=== PATIENT | female | born 1990 | race African-American/Black ===

== ENCOUNTER 2018-12-22 17:18 | Emergency (ER) | payer MEDICAID ==
[~2018-12-22] VITALS: Ht 157.5 cm; Wt 135.9 kg
[2018-12-22 17:20] VITALS: BP 111/57; PULSE 99; RESP 18; Ht 157.5 cm; Wt 135.9 kg
--- NOTE | 2018-12-22 18:18 | ERD ---
ER Documentation Chief Complaint Chief Complaint r100 fr home, "feels weird s/p smoking weed" pt keeps giggling HPI Patient is a 28-year-old female, no past medical history, presents to the ER for concerns of "feeling weird" after smoking weed. Patient is brought in from home by rescue ambulance. Patient states initially she thought she was having a panic attack that she called 911. She states she realized after that her symptoms are likely due to smoking weed. Patient admits to smoking "one joint". Patient denies any chest pain, shortness breath, nausea, vomiting, fevers, chills, diarrhea. Patient is currently eating 2 bags of chips. Patient's cousin Rosy is present and will take the patient home. ROS All systems reviewed and are negative except as per history of present illness. Allergies Allergies: Coded Allergies: latex (Verified Allergy, Unknown, 12/22/18) PMhx/Soc Medical and Surgical Hx: pt denies Medical Hx, pt denies Surgical Hx Hx Substance Use: Yes FmHx Family History: No diabetes Physical Exam Vitals Vital Signs Date Temp Pulse Resp B/P (MAP) Pulse Ox O2 O2 Flow FiO2 Time Delivery Rate 12/22/18 97.7 99 18 111/57 99 17:20 (75) Physical Exam GENERAL: Well-developed, well-nourished female. Appears in no acute distress. Speaking full sentences. Eating chips and drinking soda. HEAD: Normocephalic, atraumatic. EYES: Pupils are equally reactive bilaterally. EOMs grossly intact. No conjunctival erythema. ENT: Moist mucous membranes. No uvula deviation. No kissing tonsils. NECK: Supple. No meningismus. Normal range of motion of the neck. LUNG: Clear to auscultation bilaterally. No rhonchi, wheezing, rales or coarse breath sounds. HEART: Regular rate and rhythm. No murmurs, rubs or gallops EXTREMITIES: Equal pulses bilaterally. No peripheral clubbing, cyanosis or edema. No unilateral leg swelling. NEUROLOGIC: Alert and oriented. Moving all four extremities without any difficulty. Normal speech. Steady gait. SKIN: Normal color. Warm and dry. No rashes or lesions. Procedures/MDM MEDICAL DECISION MAKING: Patient is a 28-year-old female with the ER for concerns of "feeling weird" after smoking a joint prior to arrival.. Vital signs were reviewed. Patient is afebrile. Patient was not hypoxic. Patient was hemodynamically stable. Patient is alert and oriented. Patient is drinking soda and tolerating fluids without any difficulty. Patient did not vomit. Patient does have her cousin Rosy here with her who will help patient get home sleep. Patient advised on drug use cessation. Discussed case with supervising physician, Dr. Dumas, who agrees that patient is stable for outpatient management. DISCHARGE: At this time, patient is stable for discharge and outpatient management. I have instructed the patient to follow-up with his/her primary care physician in 1-2 days. I have discussed with the patient the possibility of needing to see a specialist for further workup and imaging studies if symptoms persist. I have instructed the patient to promptly return to the ER for any new or worsening symptoms including increased pain, fever, nausea, vomiting, weakness or LOC. The patient and/or family expressed understanding of and agreement with this plan. All questions were answered. Home care instructions were provided. Disclaimer: Inadvertent spelling and grammatical errors are likely due to EHR/dictation software use and do not reflect on the overall quality of patient care. Also, please note that the electronic time recorded on this note does not necessarily reflect the actual time of the patient encounter. Departure Diagnosis: Primary Impression: Marijuana abuse Condition: Fair Patient Instructions: Marijuana Abuse Referrals: [facility] YOU HAVE RECEIVED A MEDICAL SCREENING EXAM AND THE RESULTS INDICATE THAT YOU DO NOT HAVE A CONDITION THAT REQUIRES URGENT TREATMENT IN THE EMERGENCY DEPARTMENT. FURTHER EVALUATION AND TREATMENT OF YOUR CONDITION CAN WAIT UNTIL YOU ARE SEEN IN YOUR DOCTORS OFFICE WITHIN THE NEXT 1-2 DAYS. IT IS YOUR RESPONSIBILITY TO MA KE AN APPOINTMENT FOR FOLOW-UP CARE. IF YOU HAVE A PRIMARY DOCTOR --you should call your primary doctor and schedule an appointment IF YOU DO NOT HAVE A PRIMARY DOCTOR YOU CAN CALL OUR PHYSICIAN REFERRAL HOTLINE AT IF YOU CAN NOT AFFORD TO SEE A PHYSICIAN YOU CAN CHOSE FROM THE FOLLOWING [facility] [address] [facility] [address] [facility] [facility] [address] [facility] [address] [facility] [address] [facility]. [facility] [address] [facility]. [facility] YOU HAVE RECEIVED A MEDICAL SCREENING EXAM AND THE RESULTS INDICATE THAT YOU DO NOT HAVE A CONDITION THAT REQUIRES URGENT TREATMENT IN THE EMERGENCY DEPARTMENT. FURTHER EVALUATION AND TREATMENT OF YOUR CONDITION CAN WAIT UNTIL YOU ARE SEEN IN YOUR DOCTORS OFFICE WITHIN THE NEXT 1-2 DAYS. IT IS YOUR RESPONSIBILITY TO MAKE AN APPOINTMENT FOR FOLOW-UP CARE. IF YOU HAVE A PRIMARY DOCTOR --you should call your primary doctor and schedule and appointment IF YOU DO NOT HAVE A PRIMARY DOCTOR YOU CAN CALL OUR PHYSICIAN REFERRAL HOTLINE AT . IF YOU CAN NOT AFFORD TO SEE A PHYSICIAN YOU CAN CHOSE FROM THE FOLLOWING [facility] INSTITUTIONS: [facility] [address] [place] [address] [facility] [address] [place] [address] [facility] + [facility] [address] [place] [address] Additional Instructions: Call your primary care doctor TOMORROW for an appointment during the next 1-2 days.See the doctor sooner or return here if your condition worsens before your appointment time. KANU MYERS PA-C Dec 22, 2018 18:18
== END 2018-12-22 18:07 | disposition home or self-care (01) ==
LOC: E/R 17:18
DX: F12.10 Cannabis abuse, uncomplicated (principal)
CPT/HCPCS: 99283